=== PATIENT | male | born 1965 | race Caucasian/White ===

== ENCOUNTER → 2021-09-16 | Outpatient (CLI) | payer OTHER ==
[~2021-09-16] VITALS: Ht 180.3 cm; Wt 90.7 kg
[~2021-09-16] MED LIST: DESYREL150 MG PO; MULTI VITAMIN1 EACH PO; NEURONTIN600 MG PO; PROZAC40 MG PO
--- NOTE | 2021-09-18 15:07 | PATH ---
[facility] [address] [place] [address] PATHOLOGY RPT PROCEDURE Name: SANTANA PARKER Room #: REG [facility] MDiaR.#: [id number] Admission: 09/16/21 Date of : 69 Discharge: Report #: [id number] Path Case #: [id number] [facility] Accession Number: [id number] . 01 Material submitted: . esophagus - DISTAL ESOPHAGUS BX R/O WOOD'S. Modifiers: distal . 01 Clinical history: . HX WOOD'S ESOPHAGITIS . 02 Diagnosis: Distal esophagus, biopsy: - Wood's esophagus. - Negative for dysplasia or malignancy. (ANK:pit; 09/18/2021) QTP 09/18/2021 1209 Local . 02 Electronically signed: . Sandy Hanley MD, Pathologist NPI- [id number] . 01 Gross description: . The specimen is received in formalin, labeled "Dewitte Santana, distal esophagus biopsy R/O Wood's". Received are 4 cabrera-white, soft tissue fragments, measuring 0.2-0.6 cm, in greatest dimension. The specimen is entirely submitted in cassette A1. (JGG; 09/17/2021) JGG/JGG 09/17/2021 1351 Local . 02 Pathologist provided ICD-10: K22.70 . 02 CPT . 856745 Specimen Comment: A courtesy copy of this report has been sent to [phone] Specimen Comment: [phone] Specimen Comment: Report sent to / DR BARTH Performed at: [address], [place] [id number] MD Francesco Lovelace MD Phone: [phone] Performed at: [address], [place] [id number] MD Sandy Hanley MD Phone: [phone]
--- NOTE | 2021-09-23 12:57 | P ---
[facility] [place] [address] PROCEDURE REPORT Name: ANDI PARKER Room #: REG Cayetano Edwards#: [id number] Admission: 09/16/21 Attend Phys: Armin Husain Discharge: Date of : 69 Report #: [id number] THIS REPORT FOR: cc: Lupe Solis MD. Lupe Solis MD. Armin Echeverria MD ~ cc: Lupe Solis DATE OF SERVICE: 09/16/2021 PROCEDURE PERFORMED: Upper endoscopy with biopsies. 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 Advised the patient to have daily PPI therapy. He took Prilosec for several months. He is not currently on an antacid on a regular basis. He takes Tums on a p.r.n. basis. He denies any nausea, vomiting or dysphagia. He is here for routine followup for history of Blunt's. DESCRIPTION OF PROCEDURE: The risks and benefits of the procedure were explained to the patient, those risks including but not limited to bleeding, perforation and the risk of sedation. He understood these risks and gave informed consent. Sedation was given using propofol per Anesthesia. Next, using a standard Olympus upper endoscope, the scope was placed in the patient's mouth and advanced under direct vision through the esophagus, stomach and into the second portion of the duodenum. The larynx was normal in appearance. The upper and mid esophagus was normal. In the distal esophagus, a short segment of Blunt's was once again noted. Also, grade B erosive esophagitis. Several biopsies were obtained. Upon entering the stomach, a small hiatal hernia was once again noted. Overall, the gastric mucosa was normal. The pylorus was normal and patent. The duodenal bulb, first and second portion were all normal. The scope was then withdrawn and the procedure terminated. The patient tolerated the procedure well. IMPRESSION: 1. Short segment Blunt's esophagus. 2. Grade B erosive esophagitis. 3. Small hiatal hernia. 4. Otherwise, normal upper endoscopy. RECOMMENDATIONS: 1. Await biopsy results. 2. Recommend long-term daily PPI therapy. [address] [address] PROCEDURE REPORT Name: ANDI PARKER Room #: REG [facility] Grace#: [id number] Admission: 09/16/21 Attend Phys: Armin Husain Discharge: Date of : 69 Report #: [id number] Thank you for allowing me to participate in his care. <ELECTRONICALLY SIGNED> By: Armin Echeverria MD 09/23/21 1257 [id number] [id number] Armin Echeverria MD /nt
== END | disposition home or self-care (01) ==
LOC: GI 06:01
PROVIDERS: ATTEND Specialist
DX: K22.70 Barrett's esophagus without dysplasia (principal); K44.9 Diaphragmatic hernia without obstruction or gangrene; K21.9 Gastro-esophageal reflux disease without esophagitis; Z98.890 Other specified postprocedural states; Z79.899 Other long term (current) drug therapy; Z20.822 Contact with and (suspected) exposure to COVID-19
CPT/HCPCS: 62110; 62900